=== PATIENT | female | born 1935 | race Hispanic/Latino ===

== ENCOUNTER 2016-11-01 14:11 | Emergency (ER) | payer MEDICARE, OTHER ==
[2016-11-01 14:11] VITALS: BMI 26.4
[2016-11-01] MEDS ORDERED: TDAP Vaccine 0.5 mL Syr IM ONE (14:46)
--- NOTE | 2016-11-01 14:54 | ED PDOC ---
Arrival/HPI - General Chief Complaint: Trauma Time Seen by Provider: 11/01/16 14:29 Historian: Patient - History of Present Illness Narrative History of Present Illness (Text): 11/01/16 14:36 A 81 year old female presents to the emergency department for evaluation after a mechanical fall. Patient reports she tripped and fell onto her left knee. Patient note she hit her right elbow and head on the tree. Currently, patient complains of left knee and right elbow pain. She denies any loss of consciousness, neck pain, back pain, hip pain, headache, dizziness, or any other complaints at this time. Patient has not had a tetanus shot in over 20 years and does not want any pain medications at this time. PMD: Dr. Cortez Time/Duration: Prior to Arrival Symptom Onset: Sudden Symptom Course: Unchanged Quality: Other Activities at Onset: Light Context: Walking, Street Past Medical History - Provider Review Nursing Documentation Reviewed: Yes - Infectious Disease Hx of Infectious Diseases: None - Cardiac Hx Cardiac Disorders: Yes - Pulmonary Hx Respiratory Disorders: Yes Hx Pneumonia: Yes (about 15 years ago) - Neurological Hx Neurological Disorder: Yes Hx Dizziness: Yes - HEENT Hx HEENT Disorder: Yes Hx Cataracts: Yes (with bilateral surgery) - Renal Hx Renal Disorder: No - Endocrine/Metabolic Hx Endocrine Disorders: No - Hematological/Oncological Hx Blood Disorders: No - Integumentary Hx Dermatological Disorder: No - Musculoskeletal/Rheumatological Hx Musculoskeletal Disorders: Yes Hx Arthritis: Yes Hx Falls: Yes (10/16/2015) Hx Herniated Disk: Yes Hx Osteoporosis: Yes - Gastrointestinal Hx Gastrointestinal Disorders: No - Genitourinary/Gynecological Hx Genitourinary Disorders: No - Psychiatric Hx Psychophysiologic Disorder: Yes Hx Anxiety: Yes Hx Substance Use: No - Surgical History Hx Hysterectomy: Yes - Anesthesia Hx Anesthesia: Yes Hx Anesthesia Reactions: No Hx Malignant Hyperthermia: No - Suicidal Assessment Feels Threatened In Home Enviroment: No Family/Social History - Physician Review Nursing Documentation Reviewed: Yes Family/Social History: Unknown Family HX Smoking Status: Never Smoked Hx Alcohol Use: No Hx Substance Use: No Hx Substance Use Treatment: No Allergies/Home Meds Allergies/Adverse Reactions: Allergies erythromycin base Allergy (Verified 11/01/16 14:21) RASH Sulfa (Sulfonamide Antibiotics) Allergy (Verified 11/01/16 14:21) RASH Home Medications: Home Meds Medication Instructions Recorded Confirmed Rosuvastatin Calcium [Crestor] 5 mg PO DAILY 07/29/13 11/01/16 Ubidecarenone/Vit E Acet [Co Q-10 1 cap PO DAILY 11/01/16 11/01/16 100 mg Softgel] Physical Exam - Physical Exam Narrative Physical Exam (Text): - Review of Systems Constitutional: Head Trauma. absent: Fatigue, Weight Change, Fevers Eyes: Normal ENT: Normal Respiratory: Normal absent: SOB, Cough, Sputum Cardiovascular: Normal absent: Chest pain, Palpitations, Syncope Gastrointestinal: Normal absent: Abdominal pain, Diarrhea, Nausea, Vomiting Genitourinary: Normal. absent: Dysuria, Frequency, Hematuria Musculoskeletal: Right elbow and left knee pain. absent: Arthralgias, Back Pain , Neck Pain Skin: Normal Neurological: Normal absent: Focal Weakness Endocrine: Normal Hemo/Lymphatic: Normal Psychiatric: Normal - Physical exam Patient appears age appropriate, speaking full sentences without difficulty. - Systems Exam Head: Present: Atraumatic, Normocephalic Pupils: Present: PERRL Extraocular Muscles: Present: EOMI Conjunctiva: Present: Normal Mouth: Present: Moist Mucous Membranes Neck: Present: Normal Range of Motion. No: MIDLINE TENDERNESS, Paraspinal Tenderness Respiratory/Chest: Present: Clear to Auscultation, Good Air Exchange. No: Respiratory Distress, Accessory Muscle Use, Tachypneic Cardiovascular: Present: Regular Rate and Rhythm, Normal S1, S2, Peripheral Pulses Present. No: Murmurs Abdomen: Present: Normal Bowel Sounds, No: Tenderness, Peritoneal Signs, Rebound, Guarding, Distention Back: Present: Normal Inspection. No: Midline Tenderness, Paraspinal Tenderness Upper Extremity: Present: Normal Inspection. No: Cyanosis, Edema Lower Extremity: Present: Normal Inspection. No: Edema Neurological: Present: GCS=15, Speech Normal, cranial nerves II through XII fully intact with no cerebellar abnormality, neuro-sensory fully intact. No focal neurological deficits. Skin: Present: Warm, Dry, Normal Color. Superficial abrasion to the right elbow. No: Rashes Lymphatic: Present: OX3, NI, NC Psychiatric: Present: Alert, Oriented x 3, Normal Insight, Normal Concentration Head atraumatic. No nasal bone deformity or tenderness, no facial or jaw pain/ swelling. No neck midline tenderness, thoracic and lumbar spine with no midline tenderness. Pt moving b/l upper and lower extremities without difficulty, 5/5 strength, with full active and passive ROM. Distal neurovasc fully intact. Abd soft/nt/nd, no hematomas, no peritoneal signs. Neg. pelvic rock. Superficial abrasion to the right elbow. Vital Signs Reviewed: Yes Vital Signs Temp Pulse Resp BP Pulse Ox 11/01/16 15:43 98.0 F 65 18 132/69 98 11/01/16 14:23 98.3 F 68 16 134/73 95 Temperature: Afebrile Blood Pressure: Normal Pulse: Regular Respiratory Rate: Normal Appearance: Positive for: Well-Appearing, Non-Toxic, Comfortable Pain Distress: None Mental Status: Positive for: Alert and Oriented X 3 Medical Decision Making ED Course and Treatment: 11/01/16 14:36 Impression: A 81 year old female status post a mechanical fall. Differential Diagnosis include but are not limited to: fracture vs. sprain vs. abrasion Plan: -- Head CT -- Right Elbow X-ray -- Left Knee X-ray -- TDAP Vaccine -- Reassess and disposition Progress Notes: 11/01/16 15:[address]: Creator : Reynaldo Urias MD IMPRESSION: No acute finding 11/01/16 15:42 Right Elbow X-ray: As read by me. Impression: No acute fracture or dislocation. Left Knee X-ray: As read by me. Impression: No acute fracture or dislocation. 11/01/16 15:43 On re-evaluation, the patient is in no acute distress. Patient is able to ambulate without difficulty. I have discussed the results and plan with the patient, who expresses understanding. Patient in agreement with plan to discharged home. Patient is stable for discharge. Patient was instructed to follow up with physician/clinic in 1-2 days or return if symptoms worsen or new concerning symptoms arise. - RAD Interpretation Radiology Orders: 11/01/16 14:46 HEAD W/O CONTRAST [CT] Stat 11/01/16 14:47 ELBOW RIGHT 3 VIEWS ROUTINE [RAD] Stat KNEE WITH PATELLA LEFT 3 VIEW [RAD] Stat - Medication Orders Current Medication Orders: Discontinued Medications Tetanus/Reduced Diphtheria/Acell Pertussis (Boostrix Vaccine Inj) 0.5 ml IM .ONCE ONE Stop: 11/01/16 14:47 - Scribe Statement The provider has reviewed the documentation as recorded by the Scribe Dimpal Ramos Provider Nupur Attestation: All medical record entries made by the Nupur were at my direction and personally dictated by me. I have reviewed the chart and agree that the record accurately reflects my personal performance of the history, physical exam, medical decision making, and the department course for this patient. I have also personally directed, reviewed, and agree with the discharge instructions and disposition. Disposition/Present on Arrival - Present on Arrival Any Indicators Present on Arrival: No History of DVT/PE: No History of Uncontrolled Diabetes: No Urinary Catheter: No History of Decub. Ulcer: No History Surgical Site Infection Following: None - Disposition Have Diagnosis and Disposition been Completed?: Yes Diagnosis: Fall Disposition: HOME/ ROUTINE Disposition Time: 15:44 Patient Plan: Discharge Condition: GOOD Discharge Instructions (ExitCare): Fall Prevention (ED), Fall Prevention for Older Adults (GEN) Additional Instructions: PLEASE TAKE [id number] MOTRIN OR TYLENOL FOR PAIN PLEASE RETURN TO THE EMERGENCY DEPARTMENT FOR NEW OR WORSENING SYMPTOMS. RETURN RIGHT AWAY IF YOU CANNOT FOLLOW UP WITH YOUR PRIMARY CARE DOCTOR, CLINIC, OR SPECIALIST IN 1-2 DAYS. Referrals: Serafin Cortez MD [Primary Care Provider] - Follow up with primary
--- NOTE | 2016-11-01 15:16 | CT ---
PROCEDURE: CT HEAD WITHOUT CONTRAST. HISTORY: fall COMPARISON: 10/16/2015 TECHNIQUE: Axial computed tomography images were obtained through the head/brain without intravenous contrast. Radiation dose: Total exam DLP = 725 mGy-cm. This CT exam was performed using one or more of the following dose reduction techniques: Automated exposure control, adjustment of the mA and/or kV according to patient size, and/or use of iterative reconstruction technique. FINDINGS: HEMORRHAGE: No intracranial hemorrhage. BRAIN: No mass effect or edema. No atrophy or chronic microvascular ischemic changes. VENTRICLES: Unremarkable. No hydrocephalus. CALVARIUM: Unremarkable. PARANASAL SINUSES: Unremarkable as visualized. No significant inflammatory changes. MASTOID AIR CELLS: Unremarkable as visualized. No inflammatory changes. OTHER FINDINGS: None. IMPRESSION: No acute finding
[2016-11-01 15:44] VITALS: BP 132/69; PULSE 65; TEMP 98; O2SAT 98
[2016-11-01 16:09] VITALS: RESP 16
--- NOTE | 2016-11-01 16:45 | RAD ---
PROCEDURE: Left Knee Radiographs. HISTORY: Pain. COMPARISON: None. FINDINGS: BONES: Normal. No fracture. JOINTS: Normal. No osteoarthritis. JOINT EFFUSION: None. OTHER FINDINGS: None. IMPRESSION: Normal radiographs of the left knee.
--- NOTE | 2016-11-01 16:46 | RAD ---
PROCEDURE: Radiographs of the right elbow. HISTORY: pain COMPARISON: No prior. FINDINGS: BONES: Normal. No fracture. JOINTS: Normal. No osteoarthritis. SOFT TISSUES: Normal. JOINT EFFUSION: None. OTHER FINDINGS: None. IMPRESSION: Unremarkable radiographs of the right elbow.
== END 2016-11-01 16:09 | disposition home or self-care (01) ==
LOC: ED 14:11
DX: Z03.89 Encounter for observation for other suspected diseases and conditions ruled out (principal); W01.0XXA Fall on same level from slipping, tripping and stumbling without subsequent striking against object, initial encounter; Z23 Encounter for immunization

== ENCOUNTER 2017-01-24 10:19 | Emergency (ER) | payer MEDICARE, OTHER ==
[2017-01-24 10:32] VITALS: BMI 20.5
[2017-01-24 10:34] VITALS: RESP 18; TEMP 97.8
[2017-01-24] MEDS ORDERED: Sodium Chloride 0.9% 500 ML IV STA (11:09)
--- NOTE | 2017-01-24 11:12 | ED PDOC ---
Arrival/HPI - General Chief Complaint: Weakness/Neurological Deficit Time Seen by Provider: 01/24/17 10:22 Historian: Patient - History of Present Illness Narrative History of Present Illness (Text): 01/24/17 11:06 81 year old female, whose past medical history includes pneumonia, hyperlipidemia, and anxiety, presents to the emergency department complaining of weakness that began 4 days ago associated with nasal congestion, headache, cough, and "feeling hot and cold". Earlier this month she was treated for UTI with Bactrim although she states she completed antibiotic course weeks ago and has had no abdominal pain or urinary symptoms. Reports fatigue. Denies leg pain or swelling. Reports diminished appetite. No neck pain. No trauma. NO pleuritic pain. PMD: Dr. Cortez Time/Duration: Other (4 days ago) Symptom Onset: Gradual Symptom Course: Unchanged Activities at Onset: Light Context: Work Past Medical History - Infectious Disease Hx of Infectious Diseases: None - Cardiac Hx Cardiac Disorders: No - Pulmonary Hx Respiratory Disorders: Yes Hx Pneumonia: Yes - Neurological Hx Neurological Disorder: Yes Hx Dizziness: Yes - HEENT Hx HEENT Disorder: Yes Hx Cataracts: Yes (with bilateral surgery) - Renal Hx Renal Disorder: No - Endocrine/Metabolic Hx Endocrine Disorders: No - Hematological/Oncological Hx Blood Disorders: No - Integumentary Hx Dermatological Disorder: No - Musculoskeletal/Rheumatological Hx Musculoskeletal Disorders: Yes Hx Arthritis: Yes Hx Falls: Yes (10/16/2015) Hx Herniated Disk: Yes Hx Osteoporosis: Yes - Gastrointestinal Hx Gastrointestinal Disorders: No - Genitourinary/Gynecological Hx Genitourinary Disorders: No - Psychiatric Hx Psychophysiologic Disorder: Yes Hx Anxiety: Yes Hx Substance Use: No - Surgical History Hx Hysterectomy: Yes - Anesthesia Hx Anesthesia: Yes Hx Anesthesia Reactions: No Hx Malignant Hyperthermia: No - Suicidal Assessment Feels Threatened In Home Enviroment: No Family/Social History Family/Social History: Unknown Family HX Smoking Status: Never Smoked Hx Alcohol Use: No Hx Substance Use: No Hx Substance Use Treatment: No Allergies/Home Meds Allergies/Adverse Reactions: Allergies erythromycin base Allergy (Verified 01/24/17 10:40) RASH Sulfa (Sulfonamide Antibiotics) Allergy (Verified 01/24/17 10:40) RASH amoxicillin [From Augmentin] Adverse Reaction (Verified 01/24/17 10:40) VOMITING clavulanic acid [From Augmentin] Adverse Reaction (Verified 01/24/17 10:40) VOMITING Home Medications: Home Meds Medication Instructions Recorded Confirmed Rosuvastatin Calcium [Crestor] 5 mg PO DAILY 07/29/13 01/24/17 Ubidecarenone/Vit E Acet [Co Q-10 1 cap PO DAILY 11/01/16 01/24/17 100 mg Softgel] Review of Systems - Review of Systems Constitutional: Fatigue, Fevers Eyes: absent: Vision Changes, Eye Pain ENT: Rhinorrhea, Sinus Congestion, Other (right ear "muffled"). absent: Hearing Changes, Voice Changes, Sore Throat Respiratory: Cough, Sputum. absent: SOB, Wheezing Cardiovascular: absent: Chest Pain, GREENE Gastrointestinal: Appetite Changes. absent: Abdominal Pain, Diarrhea, Vomiting Genitourinary Female: Dysuria Musculoskeletal: absent: Back Pain, Other (Leg swelling) Skin: absent: Rash Neurological: Headache, Dizziness. absent: Focal Weakness, Gait Changes, Speech Changes, Facial Droop, Disequilibrium, Seizure Endocrine: absent: Polyuria Hemo/Lymphatic: absent: Easy Bleeding Psychiatric: absent: Depression Physical Exam - Physical Exam Narrative Physical Exam (Text): Head: Atraumatic. Normocephalic. No facial edema or erythema. Eyes: PERRL. EOMI. Conjunctivae are not pale. ENT: Dry Mucous membranes. Clear nasal discharge. Oropharynx is clear and symmetric. No drooling or exudate. Right TM full but no erythema or edema. No ear canal edema. Neck: Supple. Full ROM. No JVD. No lymphadenopathy. Cardiovascular: Regular rate. Regular rhythm. Systolic murmur. Distal pulses are 2+ and symmetric. Pulmonary/Chest: No evidence of respiratory distress. Bronchial breath sounde but no rales or rhonchi. No wheezing or rales Abdominal: Soft and non-distended. There is no tenderness. No rebound, guarding, or rigidity. No organomegaly. Good bowel sounds. Back: No CVA tenderness. Extremities: No edema. No cyanosis. No clubbing. Full range of motion in all extremities. No calf tenderness. Skin: Skin is warm and dry. No petechiae. No purpura. Neurological: Alert, awake, and oriented to person, place, time, and situation. Normal speech. No meningeal signs. Normal gait. No facial droop. Motor and sensory exam intact. No slurred speech. Psychiatric: Good eye contact. Normal interaction, affect, and behavior. Vital Signs Reviewed: Yes Vital Signs Temp Pulse Resp BP Pulse Ox 01/24/17 13:33 66 18 146/66 100 01/24/17 12:01 68 18 123/89 98 01/24/17 10:29 97.8 F 74 18 125/99 H 98 Temperature: Afebrile Blood Pressure: Normal Pulse: Regular Respiratory Rate: Normal Appearance: Positive for: Well-Appearing, Non-Toxic, Comfortable Pain Distress: None Mental Status: Positive for: Alert and Oriented X 3 Medical Decision Making ED Course and Treatment: 01/24/17 11:06 Impression: 81 year old female presents complaining of weakness associated with headaches, cough, and sinus congestion. Differential Diagnosis included but are not limited to: Upper Respiratory Infection VS Bronchitis VS Pneumonia VS Dehydration Plan: -- EKG -- Labs -- Chest X-ray Two Views -- IV Fluids -- Urine Culture -- Urinalysis -- Reassess and disposition Progress Notes: Patient presents with upper respiratory symptoms, on exam she has nasal congestion, and occasional cough that has productive sputum. No wheezing or fever or respiratory distress noted. No chest pain. No calf pain or swelling. Chest X-Ray Report Date : 01/24/2017 13:28:04 Dictator : Maikol Pulliam MD IMPRESSION: Lung dinh are hyperinflated consistent with underlying chronic changes emphysema or COPD. Additionally, biapical pleural thickening biapical on scarring/fibrosis. No focal consolidation. Suspect bronchitis vs. early pneumonia although not radiographic evident at this time. Currently afebrile, nontoxic appearing. She feels better after iv fluids. She is noted to be hyponatremic, review of prior labs in 2014 and 2016 reveal she has has this in past. I feel headache is at this time, possibly secondary to sinus/nasal congestion. No neuro deficits are noted and no facial edema noted. I have discussed with her low sodium levels, as she has minimal symptoms have stressed close follow-up with Dr. Cortez for close monitoring of this, as well as repeat labs on outpatient basis unless any symptoms develop or worsen. Will treat with Levaquin as she has tolerated this antibiotic in past. Patient will be discharged with follow-up with PMD. EKG and cardiac isos unremarkable. No chest pain or resp distress on discharge. No urinary symptoms noted at this time. - Lab Interpretations Lab Results: 01/24/17 11:15 01/24/17 11:15 Lab Results 01/24/17 11:15: Sodium 126 L, Potassium 4.3, Chloride 92 L, Carbon Dioxide 23, Anion Gap 15, BUN 8, Creatinine 0.6, Est GFR ( Amer) > 60, Est GFR (Non- Af Amer) > 60, Random Glucose 87, Calcium 8.9, Total Bilirubin 0.4, AST 25, ALT 29, Alkaline Phosphatase 97, Lactate Dehydrogenase 498, Total Creatine Kinase 98 , Troponin I < 0.01, NT-Pro-B Natriuret Pep 452 H, Total Protein 6.4, Albumin 3.9, Globulin 2.6, Albumin/Globulin Ratio 1.5 01/24/17 11:15: PT 10.5, INR 0.97, APTT 30.1 01/24/17 11:15: WBC 8.7 D, RBC 3.99, Hgb 12.2, Hct 35.4 L, MCV 88.7, MCH 30.6, MCHC 34.5, RDW 13.1, Plt Count 234, MPV 10.0, Gran % 69.2 H, Lymph % (Auto) 18.6 L, [place] % (Auto) 10.7 H, Eos % (Auto) 1.3 L, Baso % (Auto) 0.2, Gran # 6.02 , Lymph # 1.6, [place] # 0.9 H, Eos # 0.1, Baso # 0.02 01/24/17 11:00: Urine Color Yellow, Urine Appearance Clear, Urine pH 7.5, Ur Specific [place] 1.015, Urine Protein Trace H, Urine Glucose (UA) Negative, Urine Ketones Negative, Urine Blood Small H, Urine Nitrate Negative, Urine Bilirubin Negative, Urine Urobilinogen 0.2, Ur Leukocyte Esterase Negative, Urine RBC 1 - 3, Urine WBC 0 - 2, Ur Epithelial Cells 0 - 2 I have reviewed the lab results: Yes - RAD Interpretation Radiology Orders: 01/24/17 11:08 CHEST TWO VIEWS (PA/LAT) [RAD] Stat - EKG Interpretation EKG Interpretation (Text): EKG at 11:13 normal sinus rhythm with first degree av block with premature atrial complexes Interpreted by ED Physician: Yes Type: 12 lead EKG Comparison: Similar to previous EKG - Medication Orders Current Medication Orders: Discontinued Medications Sodium Chloride (Sodium Chloride 0.9%) 500 mls @ 1,000 mls/hr IV .Q30M STA Stop: 01/24/17 11:38 Last Admin: 01/24/17 12:02 Dose: 1,000 mls/hr Sodium Chloride (Sodium Chloride 0.9%) 1,000 mls @ 100 mls/hr IV .[facility]10[facility] Last Admin: 01/24/17 13:29 Dose: - Scribe Statement The provider has reviewed the documentation as recorded by the Scribe Siria Mancini All medical record entries made by the Scribe were at my direction and personally dictated by me. I have reviewed the chart and agree that the record accurately reflects my personal performance of the history, physical exam, medical decision making, and the department course for this patient. I have also personally directed, reviewed, and agree with the discharge instructions and disposition. Disposition/Present on Arrival - Present on Arrival Any Indicators Present on Arrival: No History of DVT/PE: No History of Uncontrolled Diabetes: No Urinary Catheter: No History of Decub. Ulcer: No History Surgical Site Infection Following: None - Disposition Have Diagnosis and Disposition been Completed?: Yes Diagnosis: Bronchitis, Hyponatremia, URI (upper respiratory infection) Disposition: HOME/ ROUTINE Disposition Time: 13:10 Patient Plan: Discharge Condition: GOOD Discharge Instructions (ExitCare): Hyponatremia (ED), Acute Bronchitis (ED) Additional Instructions: For any headaches, any numbness, any weakness, any chest pain or shortness of breath, any abdominal pain, any nausea or vomiting, any chest pain or shortness of breath, any bloody sputum, any leg pain or swelling, any unsteadiness, any persistent or worsening of symptoms, get rechecked. Have your sodium levels rechecked in the next 2-3 days. Take antibiotics as directed. Prescriptions: levoFLOXacin [Levaquin] 750 mg PO DAILY #5 tab Referrals: Serafin Cortez MD [Primary Care Provider] - Follow up with primary Forms: [employer] (Serbian)
[2017-01-24] MEDS ORDERED: Sodium Chloride 0.9% 1,000 ML IV SCH (11:15)
[2017-01-24 11:21] LABS: PH,URINE 7.5 (4.7-8.0); URINE BILIRUBIN NEGATIVE (NEGATIVE); URINE BLOOD SMALL (NEGATIVE); URINE GLUCOSE (UA) NEGATIVE (NEGATIVE); URINE KETONE NEGATIVE (NEGATIVE); URINE LEUKOCYTE ESTERASE NEGATIVE Leu/uL (NEGATIVE); URINE PROTEIN TRACE mg/dL (<30 mg/dL); URINE UROBILINOGEN 0.2 E.U./dL (<1 E.U./dL)
[2017-01-24 11:28] LABS: URINE APPEARANCE CLEAR (CLEAR); URINE COLOR YELLOW (YELLOW)
[2017-01-24 11:31] LABS: URINE EPITHELIAL CELLS 0 - 2 /hpf (0-5); URINE WBC 0 - 2 /hpf (0-6)
[2017-01-24 12:00] LABS: ALB/GLOB RATIO 1.5 (1.1-1.8); ALKALINE PHOSPHATASE 97 U/L (38-126); ALT/SGPT 29 U/L (7-56); AST/SGOT 25 U/L (14-36); BILIRUBIN,TOTAL 0.4 mg/dL (0.2-1.3); BLOOD UREA NITROGEN 8 mg/dL (7-21); CALCIUM 8.9 mg/dL (8.4-10.5); CARBON DIOXIDE 23 mmol/L (21-33); CHLORIDE 92 mmol/L (98-107); GFR AFRICAN-AMERICAN > 60; GLUCOSE,RANDOM 87 mg/dL (70-110); POTASSIUM 4.3 mmol/L (3.6-5.0); SODIUM 126 mmol/L (132-148); TOTAL PROTEIN 6.4 g/dL (5.8-8.3)
[2017-01-24 12:05] LABS: BASO # 0.02 K/mm3 (0.0-2.0); BASO % 0.2 % (0.0-3.0); EOS # 0.1 (0.0-0.7); EOS % 1.3 % (1.5-5.0); GRAN # 6.02 (1.4-6.5); GRAN % 69.2 % (50.0-68.0); HEMATOCRIT 35.4 % (36.0-48.0); LYMPH # 1.6 (1.2-3.4); LYMPH % 18.6 % (22.0-35.0); MEAN CELL VOLUME 88.7 fl (80.0-105.0); MEAN CORPUSCULAR HEMOGLOBIN 30.6 pg (25.0-35.0); MEAN CORPUSCULAR HGB CONC 34.5 g/dl (31.0-37.0); MONO # 0.9 (0.1-0.6); MONO % 10.7 % (1.0-6.0); RED CELL DISTRIBUTION WIDTH 13.1 % (11.5-14.5); WHITE BLOOD COUNT 8.7 10^3/ul (4.5-11.0)
[2017-01-24 12:13] LABS: INR 0.97 (0.93-1.08); PARTIAL THROMBOPLASTIN TIME 30.1 Seconds (23.7-30.8)
[2017-01-24 12:16] LABS: TROPONIN I < 0.01 ng/mL
--- NOTE | 2017-01-24 13:29 | RAD ---
HISTORY: cough COMPARISON: Comparison chest dated 10/16/2015 TECHNIQUE: Chest PA and lateral FINDINGS: LUNGS: Lung dinh are hyperinflated consistent with underlying chronic changes emphysema or COPD. Additionally, biapical pleural thickening biapical on scarring/fibrosis. No focal consolidation. PLEURA: As above. No significant pleural effusion identified. No pneumothorax apparent. CARDIOVASCULAR: Heart size within range of normal. Aorta is slightly ectatic with calcification of the aortic knob. OSSEOUS STRUCTURES: Mild multilevel degenerative spondylosis of the thoracic spine. There is also mild dextroscoliosis centered in the mid thoracic region. Mild chronic anterior stature loss of few upper thoracic segments VISUALIZED UPPER ABDOMEN: Normal. OTHER FINDINGS: None. IMPRESSION: Lung dinh are hyperinflated consistent with underlying chronic changes emphysema or COPD. Additionally, biapical pleural thickening biapical on scarring/fibrosis. No focal consolidation.
[2017-01-24 13:34] VITALS: BP 146/66; PULSE 66; O2SAT 100
--- NOTE | 2017-01-24 14:17 | CARD ---
APPROVED REPORT EKG Measurement Heart [id number] <Conclusion> Sinus rhythm with 1st degree AV block with premature atrial complexes Otherwise normal ECG
== END 2017-01-24 13:33 | disposition home or self-care (01) ==
LOC: ED 10:19
DX: J40 Bronchitis, not specified as acute or chronic (principal); J06.9 Acute upper respiratory infection, unspecified; E87.1 Hypo-osmolality and hyponatremia
CPT/HCPCS: 71020; 80053; 81001; 82550; 83615; 83880; 84484; 85025; 85610; 85730; 87086; 93005; 99285; J7040

== ENCOUNTER 2018-07-13 11:15 | Outpatient (CLI) | payer MEDICARE | END 2018-07-13 11:16 | disposition home or self-care (01) | LOC: RAD 11:15 ==

== ENCOUNTER → 2018-09-13 | Outpatient (CLI) | payer MEDICARE | LOC: LAB 10:55 ==

== ENCOUNTER 2018-09-15 10:58 | Outpatient (CLI) | payer MEDICARE | END 2018-09-15 10:59 | disposition home or self-care (01) | LOC: LAB 10:58 ==